=== PATIENT | female | born 1960 | race Caucasian/White ===

== ENCOUNTER → 2017-05-17 | Day surgery (SDC) | payer BC ==
[~2017-05-17] VITALS: Ht 157.5 cm; Wt 77.8 kg
[~2017-05-17] MED LIST: GLYCOPYRROLATE 0.4 MG INJ ONE; LIDOCAINE 100 MG SYRINGE ONE; LIDOCAINE 2% (SDV) 5 ML INJ ONE; LIDOCAINE 4% SOLUTION 50 ML BTL ONE; Lantus; PROPOFOL 40 ML ONE; QVAR; aspirin; atorvastatin; captopril; humulin; ibuprofen; zantac
[2017-05-17 10:25] VITALS: BP 135/71; PULSE 87; RESP 18
[2017-05-17 11:35] VITALS: BP 109/62; PULSE 70; RESP 14
--- NOTE | 2017-05-23 13:46 | GILP ---
DATE OF PROCEDURE: PROCEDURE PERFORMED: 1. Esophagogastroduodenoscopy and biopsy. 2. Colonoscopy. SURGEON: Anat Ruiz MD. PREOP DIAGNOSES: 1. Chronic heartburn. 2. Positive occult blood in stool. POSTOP DIAGNOSES: 1. Hiatal hernia. 2. Gastroesophageal reflux disease. 3. Gastritis with erosions. 4. Gastric mucosal biopsies were taken for H. pylori test. 5. Colonoscopy evaluated the cecum. 6. Poor prep, making the exam suboptimal. 7. Internal hemorrhoids. INDICATION FOR THE PROCEDURE: The patient is a 57-year-old female patient who was noted to be O positive occult blood in stool. She also had a chronic heartburn not responding to therapy. The patient was scheduled for endoscopy and colonoscopy for further evaluation. The procedures and possible complications were well explained to the patient. She understood and consented to the procedures. Under influence of anesthesia, the gastroscope was carefully introduced into the esophagus under direct vision. It was advanced to the stomach into the pylorus into the duodenal bulb, descending duodenum. FINDINGS: 1. Esophagus: The patient had a hiatal hernia and gastroesophageal reflux disease. 2. Stomach: Gastritis with erosions. Gastric mucosal biopsies were taken for H. pylori test. Blood was normal. DESCRIPTION OF THE PROCEDURE: The colonoscope was carefully introduced in the rectum. Under direct vision it was advanced all the way to the cecum. Findings: The patient had poor prep, making exam very suboptimal. The patient was noted to have internal hemorrhoids. No gross neoplasm was identified. She tolerated the procedures very well. There were no complication from the procedures. At the end of procedure, she was awake, with stable vital signs, and she was discharged home to the care of her family. IMPRESSION: 1. Hiatal hernia. 2. Gastroesophageal reflux disease. 3. Gastritis. 4. Gastric mucosal biopsies were taken for H. pylori test. 5. Colonoscopy all the way to the cecum. 6. Poor prep, making the exam suboptimal. 7. Internal hemorrhoids. PLAN: 1. Nexium 24 hours p.o. q.a.m. 2. Right leg cellulitis support. 3. The patient may need repeat colonoscopy with better preparation. Dictated By: MD IMELDA Atkins/orlin/tricia /Document#: [id number]
== END | disposition home or self-care (01) ==
LOC: GIL 09:06
PROVIDERS: ATTEND Internal Medicine Gastroenterology
DX: K92.1 Melena (principal); K29.60 Other gastritis without bleeding; K44.9 Diaphragmatic hernia without obstruction or gangrene; K21.9 Gastro-esophageal reflux disease without esophagitis; K64.8 Other hemorrhoids; E11.9 Type 2 diabetes mellitus without complications; I10 Essential (primary) hypertension; E78.5 Hyperlipidemia, unspecified
CPT/HCPCS: 43239; 45378; 82962; 87081; J2001; Z7610

== ENCOUNTER 2018-11-22 10:08 | Day surgery (SDC) | payer BC ==
[2018-11-22] VITALS (13 sets, daily range): BP systolic 110–132; BP diastolic 64–75; PULSE 65–112; RESP 14–21; Ht 154.9 cm; Wt 79.9 kg
[~2018-11-22] VITALS: Ht 154.9 cm; Wt 79.9 kg
[~2018-11-22 10:08] MED LIST changes: +CEFAZOLIN 1 GM INJ ONE; -GLYCOPYRROLATE 0.4 MG INJ ONE; -LIDOCAINE 100 MG SYRINGE ONE; -LIDOCAINE 2% (SDV) 5 ML INJ ONE; -LIDOCAINE 4% SOLUTION 50 ML BTL ONE; -PROPOFOL 40 ML ONE; +SUCCINYLCHOLINE CHLORIDE 100 MG/5 ML SYG IV ONE
[2018-11-22] MEDS ORDERED: IBUP-1544 PO (11:17)
[2018-11-22] MEDS ORDERED: CAPT25TA3 PO (11:20)
[2018-11-22] MEDS ORDERED: MTF1000T PO (11:20)
[2018-11-22] MEDS ORDERED: ALBU18HF INHALATION (11:21)
[2018-11-22] MEDS ORDERED: PROP30DR BOTH EYES (11:22)
[2018-11-22] MEDS ORDERED: FLUT100B INHALATION (11:23)
[2018-11-22] MEDS ORDERED: GLUC1KIT IJ (11:23)
[2018-11-22] MEDS ORDERED: ALPR0.254 PO (11:23)
[2018-11-22] MEDS ORDERED: SOD CHLORIDE 0.9% 1,000 ML IV SCH (12:00)
[2018-11-22] MEDS ORDERED: CEFAZOLIN 2 GM/50 ML (PMX) 50 ML IVPB SCH (12:00)
[2018-11-22] MEDS ORDERED: LIRA0.6P2 PO (12:23)
[2018-11-22] MEDS ORDERED: GLYCOPYRROLATE 0.4 MG INJ ONE (13:12)
[2018-11-22] MEDS ORDERED: PROPOFOL 20 ML ONE (13:12)
[2018-11-22] MEDS ORDERED: ROCURONIUM 50 MG INJ ONE (13:12)
[2018-11-22] MEDS ORDERED: LIDOCAINE 2% (SDV) 5 ML INJ ONE (13:12)
[2018-11-22] MEDS ORDERED: NEOSTIGMINE 3 MG/3 ML SYRINGE ONE (13:12)
[2018-11-22] MEDS ORDERED: FENTAnyl 50 MCG/ML VIAL ONE (13:13)
[2018-11-22] MEDS ORDERED: DEXAMETHASONE 4 MG/ML 5 ML INJ ONE (13:13)
[2018-11-22] MEDS ORDERED: MIDAZOLAM 1 MG/ML 2 ML INJ ONE (13:13)
[2018-11-22] MEDS ORDERED: ONDANSETRON 4 MG INJ ONE (13:13)
[2018-11-22] MEDS ORDERED: HYDROmorphONE 0.5 MG/0.5 ML SYG IV PRN (13:30)
[2018-11-22] MEDS ORDERED: LIDOCAINE 1% (MPF) 30 ML INJ ONE (13:47)
[2018-11-22] MEDS ORDERED: BUPIVACAINE 0.5%/EPI (SDV) 30 ML INJ ONE (13:47)
--- NOTE | 2018-11-22 14:12 | PREAC ---
Date/Time of Note Date/Time of Note DATE: 11/22/18 TIME: 14:08 Anesthesia Eval and Record Evaluation Time Pre-Procedure Interview DATE: 11/22/18 TIME: 14:08 Age 58 Sex female NPO: 8 hrs Preoperative diagnosis Mass L[cristiana Right Arm Planned procedure Excision Of Lipoma Right Arm And Excision Of EXcess Skin Past Medical History Past Medical History: Includes Cardio: HTN Endo: Diabetes Pulm: Asthma, Other Neuro: Peripheral neuropathy Renal: Other Hepatic: Other GI: Obesity Heme: Other Psych: Other Infection(s): Other Recreational drugs: Other : Other Surgery & Anesthesia Issues Aspiration risk Meds Anticoagulation: No Beta Belinda within 24 hr: No Reason Beta Belinda not given: Pt. not on B-Belinda Reported Medications Liraglutide (Victoza 3-Brandin) 0.6 Mg/0.1 Ml Pen.injctr, 0.6 MG PO DAILY 11/22/18 Fluticasone Furoate (Arnuity Ellipta) 100 Mcg Blst.w.dev, 100 MCG INHALATION DAILY, #1 INHALER 11/22/18 Alprazolam* (Alprazolam*) 0.25 Mg Tablet, 0.25 MG PO DAILY PRN for ANXIETY, TAB 11/22/18 Propylene Glycol-Peg 400 (Systane 0.3-0.4% Eye Drops) 0.3-0.4 % - 30 Ml Drops, 1 DROP BOTH EYES QID PRN for DRY EYES, #1 BOTTLE 11/22/18 Albuterol Sulfate* (Ventolin HFA*) 18 Gm Hfa.aer.ad, 2 PUFF INHALATION Q6H PRN for WHEEZING AND SOB, #1 INHALER 11/22/18 Captopril* (Captopril*) 25 Mg Tablet, 25 MG PO BID, #60 TAB 11/22/18 Metformin* (Glucophage*) 1,000 Mg Tablet, 1000 MG PO BID, #60 TAB 11/22/18 Ibuprofen* (Ibuprofen*) 800 Mg Tablet, 800 MG PO DAILY PRN for PAIN AND/OR INFLAMMATION, TAB 11/22/18 Discontinued Reported Medications Glucagon,Human Recombinant (Glucagon Emergency Kit) 1 Mg Kit, 1 MG IJ DAILY PRN for LOW GLUCOSE, KIT 11/22/18 [aspirin] No Conflict Check 05/17/17 [ibuprofen] No Conflict Check 05/17/17 [atorvastatin] No Conflict Check 05/17/17 [captopril] No Conflict Check 05/17/17 [qvar inhaler] No Conflict Check 05/17/17 [Lantus] No Conflict Check 05/17/17 [humulin] No Conflict Check 05/17/17 [zantac] No Conflict Check 05/17/17 Current Medications Cefazolin Sodium/ Dextrose 50 ml @ 100 mls/hr ONCE IVPB ; Start 11/22/18 at 12:00; Stop 11/22/18 at 16:00 Sodium Chloride 1,000 ml @ 75 mls/hr [id number] IV ; Start 11/22/18 at 12:00 Hydromorphone HCl (Dilaudid) 0.5 mg Q4H PRN IV SEVERE PAIN LEVEL 7-10; Start 11/22/18 at 13:30 Meds reviewed: Yes Allergies Coded Allergies: acetaminophen (Verified Allergy, Severe, 11/22/18) Allergies Reviewed: Yes Labs/Studies Labs Reviewed: Reviewed by anesthesiologist test: Negative Studies: ECG, CXR Pre-procedure Exam Last vitals Vital Signs Date Temp Pulse Resp B/P (MAP) Pulse Ox O2 O2 Flow FiO2 Time Delivery Rate 11/22/18 97.5 95 16 126/75 100 Room Air 12:37 (92) Airway: Adequate mouth opening Mallampati: Mallampati II Teeth: Normal Lung: Abnormal Heart: Normal Anticipated Difficutly with IV: Anticipate Difficult IV Access ASA Physical Status ASA physical status: 2 Emergency: None Planned Anesthetic General/MAC: ETT Neuraxial: Other Nerve block: Other Planned Pain Management Parenteral pain med, Local by surgeon Pre-operative Attestations Prior to commencing anesthesia and surgery, the patient was re-evaluated, there was verification of: *The patient's identity *The results of appropriate recent lab work and preoperative vital signs *The above evaluation not changing prior to induction *Anesthetic plan, risk benefits, alternative and complications discussed with patient/family; questions answered; patient/family understands, accepts and wishes to proceed. DORIE WESTON MD Nov 22, 2018 14:12
--- NOTE | 2018-11-22 14:53 | OPR ---
Date/Time of Note Date/Time of Note DATE: 11/22/18 TIME: 14:50 Operative Report Procedure Date: Nov 22, 2018 Preoperative Diagnosis Right forearm lipoma Postoperative Diagnosis Right forearm lipoma Operation/Procedure Performed Excision of right forearm lipoma, 6 cm Removal of excess skin 15 cm x 1 cm Surgeon see signature line Will Call Order Clerk None Anesthesia Type: general Estimated Blood Loss: 0 - 10 ml's Transfusion none Specimen Right forearm lipoma Grafts/Implants none Complications none Pt Condition Post Procedure: stable Disposition: PACU Indications This patient presented with a large lump along her right forearm that was causing pain and discomfort. It was mobile and consistent with a very large lipoma for which she will undergo excision. Given the excess skin in the area of the lipoma which has been stretched significantly she will also undergo removal of excess skin simultaneously to prevent formation of a seroma and infection. Procedure Description The right upper extremity was prepped and draped in Betadine solution. Timeout was conducted. 20 mL of a mixture of quarter percent Marcaine and 1% lidocaine was infiltrated into the dermis. The lipoma was very large and measured about 10 cm from the outside. In order to excise the lipoma and accompanying excess skin in elliptical incision measuring 15 cm longitudinally and 5 cm transversely was created. The skin along with subcutaneous tissue was cauterized down to the capsule of the lipoma. The lipoma was thereafter enucleated and removed with the capsule intact and on the table it was measured to be 6 cm in diameter. Afterwards the accompanying subcutaneous tissue and skin that was next the lipoma was removed so that the skin of the forearm could be reapproximated without any tension or disfigurement. The subcutaneous tissue was reapproximated with interrupted 3-0 Vicryl sutures. Irrigation was carried out with saline. The skin edges were then reapproximated with interrupted 3-0 nylon sutures. Wet dry dressings were applied and then covered with Dermabond. Patient tolerated procedure well. All instrument sponge and needle counts were correct at the end of the procedure. OMAR SANTOS Nov 22, 2018 14:53
--- NOTE | 2018-11-22 15:11 | PAC ---
Date/Time of Note Date/Time of Note DATE: 11/22/18 TIME: 15:10 Post-Anesthesia Notes Post-Anesthesia Note Last documented vital signs Vital Signs Date Temp Pulse Resp B/P (MAP) Pulse Ox O2 O2 Flow FiO2 Time Delivery Rate 11/22/18 97.5 95 16 126/75 100 Room Air 12:37 (92) Activity: WNL Respiratory function: WNL Cardiovascular function: WNL Mental status: Baseline Pain reasonably controlled: Yes Hydration appropriate: Yes Nausea/Vomiting absent: No DORIE WESTON MD Nov 22, 2018 15:11
== END 2018-11-22 17:10 | disposition home or self-care (01) ==
LOC: SDS 10:08
PROVIDERS: ATTEND Surgery Surgical Critical Care
DX: D17.21 Benign lipomatous neoplasm of skin and subcutaneous tissue of right arm (principal); I10 Essential (primary) hypertension; E11.9 Type 2 diabetes mellitus without complications
CPT/HCPCS: 25071; 82962; J1100; J2250; J2405; J2710; J3010; Z7610; 88304; 88305; J0690